=== PATIENT | male | born 1990 | race Two or more races ===

== ENCOUNTER 2022-10-10 23:14 | Emergency (ER) | payer OTHER ==
[~2022-10-10] VITALS: Ht 175.3 cm; Wt 97.5 kg
[2022-10-10] MEDS ORDERED: ASPIRIN 81 MG TAB.CHEW PO ONE (23:30)
[2022-10-10] MEDS ORDERED: IV NORMAL SALINE 1000 ML BAG IV ONE ×2 (23:30)
[2022-10-10] MEDS ORDERED: ASPIRIN 81 MG TAB.CHEW ONE (23:35)
[2022-10-10] MEDS ORDERED: LISI20TA30 PO (23:37)
[2022-10-10] MEDS ORDERED: ALPR2TAB7 PO (23:37)
[2022-10-10 23:42] LABS: BASOPHILS % (AUTO) 0.5 % (0.0-2.0); EOSINOPHILS % (AUTO) 0.3 % (0.0-7.0); HEMATOCRIT 50.4 % (36.7-47.1); HEMOGLOBIN 17.5 g/dL (12.5-16.3); LYMPHOCYTES # (AUTO) 1.5 K/uL (0.8-4.8); LYMPHOCYTES % (AUTO) 16.4 % (20.5-51.5); MEAN CORPUSCULAR HEMOGLOBIN 32.9 uug (23.8-33.4); MEAN CORPUSCULAR HGB CONC 35 g/dL (32.5-36.3); MEAN CORPUSCULAR VOLUME 94.8 fL (73.0-96.2); MONOCYTES # (AUTO) 1.2 K/uL (0.1-1.30); MONOCYTES % (AUTO) 12.7 % (0.0-11.0); NEUTROPHILS # (AUTO) 6.5 K/uL (1.8-8.9); NEUTROPHILS % (AUTO) 70.1 % (38.5-71.5); PLATELET COUNT (AUTO) 453 K/uL (152-348); RED BLOOD CELL COUNT(AUTO) 5.32 MIL/uL (4.06-5.63); RED CELL DISTRIBUTION WIDTH 14.4 % (12.1-16.2); WHITE BLOOD COUNT (AUTO) 9.3 K/uL (3.6-10.2)
[2022-10-11 00:01] LABS: DIFFERENTIAL COMMENT 1
[2022-10-11 00:09] LABS: CALCIUM 9.3 mg/dL (8.5-10.1); CARBON DIOXIDE 28 mmol/L (21-32); CHLORIDE 101 mmol/L (98-107); CREATININE 0.9 mg/dL (0.6-1.3); GLUCOSE 193 mg/dL (74-106); POTASSIUM 3.7 mmol/L (3.5-5.1); SODIUM SERUM 140 mmol/L (136-145); UREA NITROGEN, BLOOD 12 mg/dL (7-18)
[2022-10-11 00:26] LABS: ALANINE AMINOTRANSFERASE 790 U/L (16-63); ALBUMIN 3.9 g/dL (3.4-5.0); ALKALINE PHOSPHATASE 77 U/L (50-136); ASPARTATE AMINOTRANSFERASE 736 U/L (15-37); BILIRUBIN,DIRECT 0.4 mg/dL (0.0-0.2); BILIRUBIN,TOTAL 0.7 mg/dL (0.2-1.0); TOTAL PROTEIN, SERUM 7.5 g/dL (6.4-8.2)
[2022-10-11 00:27] LABS: NT-PRO BNP 8 pg/mL (0-125)
[2022-10-11] MEDS ORDERED: IV NORMAL SALINE 250 ML IV ONE (01:24)
[2022-10-11] MEDS ORDERED: SWABABLE VALVE TRANSFER SET EA MC ONE ×2 (01:24→01:25)
[2022-10-11] MEDS ORDERED: IOHEXOL 350 100 ML INFUS..BTL ONE (01:24)
[2022-10-11] MEDS ORDERED: MAG HYDROX/AL HYDROX/SIMETH 30 ML LIQUID UDC ONE (02:36)
[2022-10-11] MEDS ORDERED: LIDOCAINE 2% (GLYDO= UROJET) 10 ML JELLY MM ONE ×2 (02:36→02:45)
[2022-10-11] MEDS ORDERED: MAG HYDROX/AL HYDROX/SIMETH 30 ML LIQUID UDC PO ONE (02:45)
[2022-10-11 03:15] LABS: *AMPHETAMINE, URINE NEGATIVE (NEGATIVE); *BARBITURATE, URINE NEGATIVE (NEGATIVE); *BENZODIAZEPINE, URINE NEGATIVE (NEGATIVE); *CANNABINOID, URINE NEGATIVE (NEGATIVE); *COCCAINE, URINE NEGATIVE (NEGATIVE); *OPIATE, URINE NEGATIVE (NEGATIVE); *PHENCYCLIDINE SCREEN,URINE NEGATIVE (NEGATIVE); FENTANYL, URINE NEGATIVE (NEGATIVE)
[2022-10-11 03:51] VITALS: BP 122/85; TEMP 98; O2SAT 99
== END 2022-10-11 03:52 | disposition home or self-care (01) ==
LOC: ER 23:17
DX: R00.0 Tachycardia, unspecified (principal); R07.89 Other chest pain; Z79.899 Other long term (current) drug therapy; Z20.822 Contact with and (suspected) exposure to COVID-19
CPT/HCPCS: 99285; 71045; 80076; 80048; 83880; 85025; 85379; 84484 ×2; 36415 ×2; 93005; 96360; 71275; 96361; 87426; 80307; J7040 ×2; Q9967; A4663

== ENCOUNTER 2023-05-04 15:22 | Emergency (ER) | payer MEDICAID, OTHER ==
[~2023-05-04] VITALS: Ht 172.7 cm; Wt 122.5 kg
[~2023-05-04 15:22] MED LIST: ALPR2TAB7 PO; LISI20TA30 PO
[2023-05-04] MEDS: IV NORMAL SALINE 1000 ML BAG IV ONE (16:43)
[2023-05-04 19:16] VITALS: BP 131/78; O2SAT 99
== END 2023-05-04 19:21 | disposition home or self-care (01) ==
LOC: ER 15:22
DX: F10.129 Alcohol abuse with intoxication, unspecified (principal); I10 Essential (primary) hypertension; F41.9 Anxiety disorder, unspecified; Z79.899 Other long term (current) drug therapy; Y90.9 Presence of alcohol in blood, level not specified
CPT/HCPCS: A4606; A4663; J7040

== ENCOUNTER 2024-07-20 00:05 | Emergency (ER) | payer MEDICAID, OTHER ==
[~2024-07-20] VITALS: Ht 175.3 cm; Wt 104.3 kg
[2024-07-20 01:16] VITALS: BP 133/90; TEMP 98; O2SAT 86
== END 2024-07-20 01:17 | disposition home or self-care (01) ==
LOC: ER 00:05
DX: F10.129 Alcohol abuse with intoxication, unspecified (principal); Z79.899 Other long term (current) drug therapy; Y90.9 Presence of alcohol in blood, level not specified
CPT/HCPCS: A4606; A4663